=== PATIENT | male | born 1940 | race Caucasian/White ===

== ENCOUNTER 2020-05-15 21:25 | Emergency (ER) | payer OTHER ==
[~2020-05-15 21:25] MED LIST: ASPIRIN CHEWABL81 MG PO; AUGMENTIN 875-1 EACH PO; FLOMAX 0.4 MG0.4 MG PO; LIPITOR40 MG PO; LISINOPRIL40 MG PO; NORVASC5 MG PO; PLAVIX75 MG PO; POTASSIUM20 MEQ/11 PO; PROTONIX 40MG T40 MG PO; VITAMIN D350 MC3 PO; WAL-ITIN10 MG PO; ZOLOFT50 MG PO
[2020-05-15 22:43] LABS: BASOPHIL 0.8 % (0-2); EOSINOPHIL 4.8 % (0-7); HCT 42.9 % (42.0-52.0); LYMPHOCYTE 15.1 % (15-48); MCH 30.4 pg (25.0-31.0); MCHC 32.6 g/dL (32.0-36.0); MCV 93.3 fL (78.0-100.0); MONOCYTE 6.9 % (0-12); MPV 10.9 fL (6.0-9.5); NRBC 0; PLT 175 K/uL (150-400); RDW 13.2 % (11.5-14.0); WBC 7.2 K/uL (4.0-10.5)
[2020-05-15 22:49] LABS: INR 1.05 (0.9-1.2); PTT 30.4 SECONDS (22.2-34.7)
[2020-05-15 22:50] LABS: D-DIMER 3.69 ug/mLFEU (0.00-0.41)
[2020-05-15 22:54] LABS: ALBUMIN 3.6 g/dL (3.4-5.0); BILIRUBIN - TOTAL 0.5 mg/dL (0.2-1.0); BUN/CREAT RATIO (CALC) 20.2 RATIO; CREATININE 1.09 mg/dL (0.67-1.17); GLOBULIN (CALCULATION) 3.5 g/dL; POTASSIUM 4.3 mmol/L (3.5-5.1); TOTAL PROTEIN 7.1 g/dL (6.4-8.2)
[2020-05-16 01:03] LABS: BILIRUBIN NEGATIVE (NEGATIVE); BLOOD NEGATIVE Ery/uL (NEGATIVE); CLARITY CLEAR (CLEAR); COLOR YELLOW (YELLOW); GLUCOSE (U) NORMAL (NORMAL); LEUKOCYTES NEGATIVE Leu/uL (NEGATIVE); NITRITE NEGATIVE (NEGATIVE); PROTEIN NEGATIVE (NEGATIVE); UROBILINOGEN 0.2 mg/dL (0.2-1.0)
[2020-05-16] MEDS ORDERED: TRAMADOL HCL50 MG PO (02:26)
== END 2020-05-16 02:35 | disposition home or self-care (01) ==
LOC: FER 21:25
PROVIDERS: Nurse Practitioner
DX: S20.212A Contusion of left front wall of thorax, initial encounter (principal); S50.11XA Contusion of right forearm, initial encounter; R55 Syncope and collapse; I45.10 Unspecified right bundle-branch block; R20.2 Paresthesia of skin; I25.2 Old myocardial infarction; I10 Essential (primary) hypertension; Z86.73 Personal history of transient ischemic attack (TIA), and cerebral infarction without residual deficits; Z90.2 Acquired absence of lung [part of]; Z90.89 Acquired absence of other organs; Z95.1 Presence of aortocoronary bypass graft; Z87.891 Personal history of nicotine dependence; W19.XXXA Unspecified fall, initial encounter
CPT/HCPCS: 36415; 70450; 71101; 71275; 80053; 81003; 84484; 85025; 85379; 85610; 85730; 93005; J1100; Q9967